=== PATIENT | female | born 1965 | race American Indian/Alaskan Native ===

== ENCOUNTER 2017-03-10 11:54 | Observation (INO) | payer SELFPAY ==
--- NOTE | 2017-03-10 13:49 | PDOC ---
History of Present Illness - General Chief Complaint: Cold Symptoms Stated Complaint: FEVER, CHILLS (PCP SENT) Time Seen by Provider: 03/10/17 13:45 History Source: Patient - History of Present Illness Initial Comments: 03/10/17 14:16 Patient is a 51 y.o. female with no PMH who presents with a 3 day h/o subjective fever, sore throat and nausea. Patient also notes a 1 month h/o non- productive cough. Of note patient recently returned from [place] on 03/06/17. ROS is positive for 1 monht h/o night sweats and 15-20 lb weight loss over the last month. Patient notes that a number of her family members were sick in [place] - vomiting, fevers, uncertain of productive cough Past History - Past Medical History Allergies/Adverse Reactions: Allergies Allergy/AdvReac Type Severity Reaction Status Date / Time No Known Allergies Allergy Verified 03/10/17 12:04 Home Medications: Ambulatory Orders NK [No Known Home Medication] 03/10/17 COPD: No - Surgical History Abdominal Surgery: Yes Cholecystectomy: Yes - Suicide/Smoking/Psychosocial Hx Smoking History: Never smoked Hx Alcohol Use: No Drug/Substance Use Hx: No Substance Use Type: None Review of Systems - Review of Systems Constitutional: No: Chills, Fever HEENTM: No: Blurred Vision, Double Vision Respiratory: No: Shortness of Breath Cardiac (ROS): No: Chest Pain ABD/GI: No: Constipated, Diarrhea, Nausea, Vomiting : No: Burning, Dysuria All Other Systems: Reviewed and Negative *Physical Exam - Vital Signs Last Vital Signs Temp Pulse Resp BP Pulse Ox 100.9 F H 123 H 20 156/6 100 03/10/17 12:00 03/10/17 12:00 03/10/17 12:00 03/10/17 12:00 03/10/17 12:00 - Physical Exam General Appearance: Yes: Nourished, Appropriately Dressed HEENT: positive: EOMI, OCTAVIO Neck: positive: Trachea midline, Supple. negative: Lymphadenopathy (R), Lymphadenopathy (L) Respiratory/Chest: positive: Lungs Clear. negative: Respiratory Distress, Accessory Muscle Use, Labored Respiration, Rapid RR Cardiovascular: positive: S1, S2 Extremity: positive: Normal Capillary Refill, Normal Inspection Integumentary: positive: Normal Color, Dry, Warm Neurologic: positive: Fully Oriented, Alert ED Treatment Course - LABORATORY CBC & Chemistry Diagram: 03/10/17 14:25 03/10/17 14:25 Medical Decision Making - Medical Decision Making 03/10/17 15:18 Patient is a 51 y.o. female who presents with a constellation of symptoms (cough , night sweats) + recent travel to [facility] clinical suspicion for TB. Other DDx includes viral URI vs strep pharyngitis. Of note, TB skin testing likely to be positive as patient born in [place], likely recieved BG. Will require DYAN. PLAN: 1. Isolation 2. CXR, CBC, CMP 03/10/17 15:22 CXR showed no acute cardiopulmonary process including no cavitary lesion. Temp 100.9 --> IV Tylenol. DYAN pending. Influenza and Strep Pharyngitis negative. Case d/w with Dr. Mo. Patient admitted for observation. Patient and patient 's family @ bedside counseled on plan of care and important of contact precautions. Will continue to monitor patient while in ED. *DC/Admit/Observation/Transfer Diagnosis at time of Disposition: Fever - Discharge Dispostion Admit: Yes - Referrals - Patient Instructions - Post Discharge Activity
[2017-03-10] MEDS ORDERED: ACETAMINOPHEN 1000 MG/100 ML VIAL (NON FORMULARY) IVPB ONE (14:16)
[2017-03-10] MEDS ORDERED: SODIUM CHLORIDE 1,000 ML IV STA (14:16)
[2017-03-10 14:36] LABS: BASO % 0.8 % (0-2.0); EOS % 0.1 % (0-4.5); HEMATOCRIT 40.7 % (32.4-45.2); HEMOGLOBIN 13.1 GM/dL (10.7-15.3); LYMPH % 11.8 % (8-40); MCHC 32.2 g/dl (32.0-36.0); MEAN CELL VOLUME 77.5 fl (80-96); MEAN PLT VOLUME 8.2 fl (7.5-11.1); NEUT % 81.3 % (42.8-82.8); PLATELET COUNT 174 K/MM3 (134-434); RBC 5.25 M/mm3 (3.60-5.2); WHITE BLOOD COUNT 10.1 K/mm3 (4.0-10.0)
[2017-03-10] MEDS ORDERED: ACETAMINOPHEN INJECTION 100 ML IVPB ONE (14:42)
[2017-03-10 15:00] LABS: ALBUMIN 3.6 g/dl (3.4-5.0); ALK PHOS 70 U/L (45-117); ANION GAP 9 (8-16); BILIRUBIN,TOTAL 1.1 mg/dL (0.2-1.0); BLOOD UREA NITROGEN 7 mg/dL (7-18); CHLORIDE 102 mmol/L (98-107); CO2 25 mmol/L (21-32); CREATININE 0.8 mg/dL (0.55-1.02); GLUCOSE,RANDOM 99 mg/dL (74-106); POTASSIUM 3.6 mmol/L (3.5-5.1); SGOT/AST 13 U/L (15-37); SGPT/ALT 27 U/L (12-78); SODIUM 136 mmol/L (136-145); TOT PROT 7.5 g/dl (6.4-8.2)
--- NOTE | 2017-03-10 15:27 | PDOC ---
History of Present Illness - General Chief Complaint: Cold Symptoms Stated Complaint: FEVER, CHILLS (PCP SENT) Time Seen by Provider: 03/10/17 13:45 - History of Present Illness Initial Comments: 03/10/17 15:19 "The patient is a 51 year old female who presents to the emergency department with 3 days of cough, sore throat, and subjective fever since traveling from [facility] to [place] She states she has had the dry cough for about a month. She reports throat pain, but denies swelling. She also reports a 15 pound weight loss in the past month or so in addition to night sweats. She denies chest pain, shortness of breath, headache and dizziness. She denies nausea, vomit, diarrhea and constipation. She denies dysuria, frequency, urgency and . hematuria. Allergies: NKDA " Past History - Past Medical History Allergies/Adverse Reactions: Allergies Allergy/AdvReac Type Severity Reaction Status Date / Time No Known Allergies Allergy Verified 03/10/17 12:04 Home Medications: Ambulatory Orders NK [No Known Home Medication] 03/10/17 COPD: No - Surgical History Abdominal Surgery: Yes Cholecystectomy: Yes - Suicide/Smoking/Psychosocial Hx Smoking History: Never smoked Hx Alcohol Use: No Drug/Substance Use Hx: No Substance Use Type: None *Physical Exam - Vital Signs Last Vital Signs Temp Pulse Resp BP Pulse Ox 100.9 F H 123 H 20 156/6 100 03/10/17 12:00 03/10/17 12:00 03/10/17 12:00 03/10/17 12:00 03/10/17 12:00 ED Treatment Course - LABORATORY CBC & Chemistry Diagram: 03/10/17 14:25 03/10/17 14:25 - ADDITIONAL ORDERS Additional order review: Laboratory Results 03/10/17 14:25 Sodium 136 Potassium 3.6 Chloride 102 Carbon Dioxide 25 Anion Gap 9 BUN 7 Creatinine 0.8 Creat Clearance w eGFR > 60 Random Glucose 99 Calcium 9.0 Total Bilirubin 1.1 H AST 13 L ALT 27 Alkaline Phosphatase 70 Total Protein 7.5 Albumin 3.6 03/10/17 13:50 Group A Strep Rapid Antigen - Final Throat 03/10/17 14:02 Influenza Types A,B Antigen (LORRIE) - Final Nasopharyngeal Swab - Final 03/10/17 14:25 RBC 5.25 H MCV 77.5 L MCHC 32.2 RDW 14.0 MPV 8.2 Neutrophils % 81.3 Lymphocytes % 11.8 Monocytes % 6.0 Eosinophils % 0.1 Basophils % 0.8 - Medications Given in the ED: ED Medications Discontinued Medications Generic Name Dose Route Start Last Admin Trade Name Ashanti PRN Reason Stop Dose Admin Acetaminophen 1,000 mg 03/10/17 14:16 03/10/17 15:08 Ofirmev Injection - IVPB 03/10/17 14:17 1,000 mg ONCE ONE Administration Sodium Chloride 1,000 mls @ 1,000 mls/hr 03/10/17 14:16 03/10/17 15:08 Normal Saline - IV 03/10/17 15:15 1,000 mls/hr ASDIR STA Administration *DC/Admit/Observation/Transfer - Referrals Referrals: Gino Whitehead MD [Primary Care Provider] - - Patient Instructions - Post Discharge Activity
--- NOTE | 2017-03-10 15:30 | PDOC ---
Attending Attestation - Resident Resident Name: Gail Garcia - ED Attending Attestation I have performed the following: I have examined & evaluated the patient, The case was reviewed & discussed with the resident, I agree w/resident's findings & plan, Exceptions are as noted - HPI HPI: 03/10/17 15:28 "The patient is a 51 year old female, with a significant past medical history of , who presents to the emergency department with 3 days of cough, sore throat, and subjective fever since traveling from [place] to [place] She states she has had the dry cough for about a month. She reports throat pain, but denies swelling. She also reports a 15 pound weight loss in the past month or so, as well as night sweats. She denies chest pain, shortness of breath, headache and dizziness. She denies nausea, vomit, diarrhea and constipation. She denies dysuria, frequency, urgency and . hematuria. Allergies: NKDA " - Physicial Exam PE: 03/10/17 15:28 "GENERAL: Awake, alert, and fully oriented, in no acute distress HEAD: No signs of trauma EYES: PERRLA, EOMI, sclera anicteric, conjunctiva clear ENT: Auricles normal inspection, hearing grossly normal, nares patent, oropharynx clear without exudates. Moist mucosa NECK: Nontender, no stepoffs, Normal ROM, supple, no lymphadenopathy, JVD, or masses LUNGS: Breath sounds equal, clear to auscultation bilaterally. No wheezes, and no crackles HEART: Regular rate and rhythm, normal S1 and S2, no murmurs, rubs or gallops ABDOMEN: Soft, nontender, normoactive bowel sounds. No guarding, no rebound. No masses EXTREMITIES: Normal range of motion, no edema. No clubbing or cyanosis. No cords, erythema, or tenderness NEUROLOGICAL: Cranial nerves II through XII intact. 5/5 strength and sensation in all extremities, Normal speech, normal gait SKIN: Warm, Dry, normal turgor, no rashes or lesions noted. " - Medical Decision Making 03/10/17 15:28 51 F with fevers, cough, night sweats, and 15 lb weight loss x 1 month, with recent travel from [place]. Flu swab and rapid strep both negative. Likely viral URI, but consider TB r/o. - Labs - CXR - AFBs, DYAN - IVF, tylenol
[2017-03-10 15:40] LABS: URINE APPEARANCE CLEAR; URINE BILIRUBIN NEGATIVE (NEGATIVE); URINE BLOOD NEGATIVE (NEGATIVE); URINE COLOR STRAW; URINE GLUCOSE (UA) NEGATIVE (NEGATIVE); URINE KETONE NEGATIVE (NEGATIVE); URINE LEUK ESTERASE NEGATIVE (NEGATIVE); URINE NITRITE NEGATIVE (NEGATIVE); URINE PROTEIN NEGATIVE (NEGATIVE); URINE UROBILINOGEN NEGATIVE mg/dL (0.2-1.0)
[2017-03-10] MEDS ORDERED: ONDANSETRON 4 MG/2 ML VIAL IVPUSH PRN (17:38)
[2017-03-10] MEDS ORDERED: guaiFENesin/D-METHORPHAN HB 10 ML UNIT-DOSE CUPS PO PRN (17:39)
[2017-03-11] MEDS: ACETAMINOPHEN 325 MG TABLET (FP) PO PRN ×3 (00:03→17:20)
[2017-03-11] MEDS: D5-1/2NS+10 MEQ KCL - 10 MEQ/1,000 ML INFUS.BAG IV SCH ×2 (01:05→19:28)
[2017-03-11 06:01] VITALS: BMI 33.3
[2017-03-11 07:51] LABS: ALBUMIN 3.2 g/dl (3.4-5.0); ALK PHOS 58 U/L (45-117); ANION GAP 9 (8-16); BILIRUBIN,TOTAL 1.3 mg/dL (0.2-1.0); BLOOD UREA NITROGEN 7 mg/dL (7-18); CALCIUM 7.9 mg/dL (8.5-10.1); CHLORIDE 105 mmol/L (98-107); CO2 27 mmol/L (21-32); CREATININE 0.7 mg/dL (0.55-1.02); GLUCOSE,RANDOM 80 mg/dL (74-106); POTASSIUM 3.7 mmol/L (3.5-5.1); SGOT/AST 11 U/L (15-37); SGPT/ALT 21 U/L (12-78); SODIUM 141 mmol/L (136-145); TOT PROT 6.5 g/dl (6.4-8.2)
[2017-03-11 08:20] LABS: BASO % 0.3 % (0-2.0); EOS % 0.5 % (0-4.5); HEMATOCRIT 38.9 % (32.4-45.2); HEMOGLOBIN 12.7 GM/dL (10.7-15.3); LYMPH % 11.9 % (8-40); MCH 25.5 pg (25.7-33.7); MCHC 32.6 g/dl (32.0-36.0); MEAN CELL VOLUME 78.3 fl (80-96); MEAN PLT VOLUME 8.7 fl (7.5-11.1); MONO % 7.1 % (3.8-10.2); NEUT % 80.2 % (42.8-82.8); PLATELET COUNT 145 K/MM3 (134-434); RBC 4.97 M/mm3 (3.60-5.2); RDW 14.3 % (11.6-15.6); WHITE BLOOD COUNT 8.5 K/mm3 (4.0-10.0)
--- NOTE | 2017-03-11 10:33 | EKG ---
Test Reason : Blood Pressure : / mmHG Vent. Rate : 090 BPM Atrial Rate : 090 BPM P-R Int : 130 ms QRS Dur : 084 ms QT Int : 362 ms P-R-T Axes : 051 080 032 degrees QTc Int : 442 ms POOR DATA QUALITY, INTERPRETATION MAY BE ADVERSELY AFFECTED NORMAL SINUS RHYTHM NORMAL ECG NO PREVIOUS ECGS AVAILABLE Confirmed by ELISHA LANDAVERDE MD ([id number]) on 03/11/2017 10:32:53 AM Referred By: Confirmed By:ELISHA LANDAVERDE MD
--- NOTE | 2017-03-11 12:13 | HP ---
Admitting History and Physical - Primary Care Physician PCP: Gino Whitehead - Admission Chief Complaint: Fever cough with nause and vomiting History of Present Illness: 51 yrs old F no significant PMH recently travelled back from [facility] 14 Hrs flight present to Ed with 4-5 days H/O URTI symptoms with nausea, vomiting, nasal congestion, fever, chills and cough with body pain also c/o loosing 10- 15 Lbs over past few months,, no c/o night sweats, yesterday present to clinic , clinically dehydrated febrile, unable to tolerate PO so evaluated in the Ed and admitted for further evaluation, some how intially considering travelling to [facility] TB w/u was order by MD in the Ed but cancealed, patient is on airborn isolation., Feels improve on IV Hydration and symptomatic treatment, able to tolerate breakfast cultures are pending, Flu test -ve in the ED CBC Mildly elevated, CMP, CXR UA Normal.Also c/o Rt calf tenderness no swelling. 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 - Past Surgical History Past Surgical History: Yes: None - Smoking History Smoking history: Never smoked - Alcohol/Substance Use Hx Alcohol Use: No - Social History History of Recent Travel: Yes ([place] 2 wks ago) Home Medications - Allergies Allergies/Adverse Reactions: Allergies Allergy/AdvReac Type Severity Reaction Status Date / Time No Known Allergies Allergy Verified 03/10/17 12:04 - Home Medications Home Medications: Ambulatory Orders NK [No Known Home Medication] 03/10/17 Family Disease History - Family Disease History Family History: Unremarkable Review of Systems - Review of Systems Constitutional: reports: Chills, Fever, Lethargy, Loss of Appetite Eyes: denies: Blind Spots, Blurred Vision HENT: reports: Nasal Congestion. denies: Difficult Swallowing, Ear Discharge, Ear Pain Neck: denies: Decreased ROM, Lumps Cardiovascular: denies: Chest Pain, Edema, Palpitations Respiratory: reports: Cough. denies: Exercise Intolerance, Wheezing Gastrointestinal: reports: Abdominal Pain, Nausea, Vomiting Genitourinary: denies: Discharge, Dysuria Musculoskeletal: denies: Back Pain, Decreased ROM Integumentary: denies: Bruising, Change in Color Neurological: denies: Change in LOC, Change in Speech, Unsteady Gait Endocrine: denies: Excessive Sweating Hematology/Lymphatic: denies: Easily Bruised, Excessive Bleeding Pain Intensity: 4 Physical Examination Vital Signs: Vital Signs Temperature 100.5 F H 03/11/17 06:20 Pulse Rate 98 H 03/11/17 06:20 Respiratory Rate 20 03/11/17 06:20 Blood Pressure 128/70 03/11/17 06:20 O2 Sat by Pulse Oximetry (%) 99 03/10/17 23:50 Middle aged F not in acute distress, feels improved T ax 100.5 HEENT: MM dry no anemia, PERRLA EOMI NECK; No JVd , No Bruit CHEST: B/L cTA CVS: S1S2 R no m/g/r ABD: Obese, no distention, non tender Bs + EXT: No edema feet, Rt calf pain no swelling, Pulses + ARCHITECTURAL DESIGN LECTURER: AOx3 non focal Labs: CBC, BMP 03/11/17 06:00 03/11/17 06:00 Imaging - Results X-ray: Report Reviewed (No acute Infiltrayes) EKG: Report Reviewed (HR 90 NSR DC 130 QTc 442 axis; 80 Normal) Problem List - Problems (1) Fever Assessment/Plan: Present with fever and URTI symptoms, most likely viral Flu screening negative clinically improving, alythoug recent travelling to TB endemic area but clinical presentation unlikely of TB Chest X ray is normal, will consult Id for TB risk evaluation and further w/u if indicated., Tylenol PRN Cont IV Hydrtaion. F/U Pending cultures, off abx. Code(s): R50.9 - FEVER, UNSPECIFIED Qualifiers: Fever type: unspecified Qualified Code(s): R50.9 - Fever, unspecified (2) Nausea & vomiting Assessment/Plan: Improving now tolerating PO Cont famotidine and Zofran PRN taper IV Hydration Code(s): R11.2 - NAUSEA WITH VOMITING, UNSPECIFIED (3) Pain of right calf Assessment/Plan: No swelling considering recent prolonged air travel will do LE Doppler to r/O DVT cont DVT Prophylaxis. Code(s): M79.661 - PAIN IN RIGHT LOWER LEG
--- NOTE | 2017-03-11 14:12 | CON.ID ---
Consult Consult Specialty:: infectious diseases Referred by:: Reason for Consultation:: fever - History of Present Illness Chief Complaint: weakness,fever History of Present Illness: 51 yrs old F no significant PMH recently travelled back from [facility] on wednesday with 4-5 days H/O URTI symptoms with nausea, vomiting, nasal congestion, fever, chills and cough with body pain also patient mentions that she has lost weight, Her main complaint is sore throat because of which she is not able to eat or drink properly has been spiking fevers patient has her flu test negative. 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 - Past Surgical History Past Surgical History: Yes: None - Alcohol/Substance Use Hx Alcohol Use: No - Smoking History Smoking history: Never smoked - Social History History of Recent Travel: Yes ([place] 2 wks ago) Home Medications - Allergies Allergies/Adverse Reactions: Allergies Allergy/AdvReac Type Severity Reaction Status Date / Time No Known Allergies Allergy Verified 03/10/17 12:04 - Home Medications Home Medications: Ambulatory Orders NK [No Known Home Medication] 03/10/17 Review of Systems - Review of Systems Constitutional: reports: Chills, Fever HENT: reports: Other (sore throat pain while swallowing) Neck: reports: Tenderness Cardiovascular: reports: No Symptoms Respiratory: reports: No Symptoms Gastrointestinal: reports: No Symptoms Genitourinary: reports: No Symptoms Breasts: reports: No Symptoms Reported Musculoskeletal: reports: No Symptoms Integumentary: reports: No Symptoms Neurological: reports: No Symptoms Endocrine: reports: Increased Thirst Hematology/Lymphatic: reports: No Symptoms Physical Exam Vital Signs: Vital Signs Temperature 100.5 F H 03/11/17 06:20 Pulse Rate 98 H 03/11/17 06:20 Respiratory Rate 20 03/11/17 06:20 Blood Pressure 128/70 03/11/17 06:20 O2 Sat by Pulse Oximetry (%) 99 03/10/17 23:50 Constitutional: Yes: Well Nourished, Calm, Mild Distress HENT: Yes: Pharyngeal Erythema Neck: Yes: Supple, Lymphadenopathy (rt side submandibular) Cardiovascular: Yes: Regular Rate and Rhythm Respiratory: Yes: Regular, CTA Bilaterally Gastrointestinal: Yes: Normal Bowel Sounds, Soft Musculoskeletal: Yes: WNL Extremities: Yes: WNL Neurological: Yes: Alert, Oriented Psychiatric: Yes: Alert, Oriented Labs: CBC, BMP 03/11/17 06:00 03/11/17 06:00 Imaging - Results Chest X-ray: Report Reviewed, Image Reviewed Assessment/Plan Problem List - Problems (1) Fever Code(s): R50.9 - FEVER, UNSPECIFIED Qualifiers: Fever type: unspecified Qualified Code(s): R50.9 - Fever, unspecified (2) Nausea & vomiting Code(s): R11.2 - NAUSEA WITH VOMITING, UNSPECIFIED (3) Pain of right calf Code(s): M79.661 - PAIN IN RIGHT LOWER LEG 4 pharyngitis 5 dehydration i suspect that this is a viral illness,but very well could be strep throat i highly doubt that this is tb, plan will do a malaria smear ebenezer prado patient on augmentin hydration will do blood cx
[2017-03-11] MEDS: AMOX TR/POT CLAV 875MG/125MG TABLETS (FP) PO SCH (17:20)
[2017-03-12] MEDS: D5-1/2NS+10 MEQ KCL - 10 MEQ/1,000 ML INFUS.BAG IV SCH (06:16)
[2017-03-12] MEDS: AMOX TR/POT CLAV 875MG/125MG TABLETS (FP) PO SCH (08:14)
--- NOTE | 2017-03-12 09:17 | DS ---
Physical Examination Vital Signs: Vital Signs Temperature 98.8 F 03/12/17 06:00 Pulse Rate 87 03/12/17 06:00 Respiratory Rate 18 03/12/17 06:00 Blood Pressure 131/74 03/12/17 06:00 O2 Sat by Pulse Oximetry (%) 99 03/10/17 23:50 Labs: CBC, BMP 03/11/17 06:00 03/11/17 06:00 Discharge Summary Reason For Visit: FEVER Current Active Problems Fever (Acute) Nausea & vomiting (Acute) Pain of right calf (Acute) Condition: Improved - Instructions Referrals: Gino Whitehead MD [Primary Care Provider] - 1 Week - Home Medications Comprehensive Discharge Medication List: Ambulatory Orders Acetaminophen [Tylenol .Regular Strength -] 650 mg PO Q6H PRN tablet 03/12/17 Amox-Tr/K Cl [Augmentin 875-125mg Tablet -] 1 tab PO BID@0800,1730 tablet 03/12 Guaifenesin Dm [Robitussin Dm -] 10 ml PO Q8H PRN cup 03/12/17
[2017-03-12 10:23] VITALS: BP 121/76; PULSE 86; TEMP 98.2
== END 2017-03-12 11:45 | disposition home or self-care (01) ==
LOC: JER 11:54 → SUPCPDRO 11:54 → JERBED 16:39 → J8W 23:37
PROVIDERS: ADMIT Internal Medicine; ATTEND Internal Medicine
CPT/HCPCS: 36415; 71046-TC; 80053; 81003; 84703; 85025; 87040; 87070; 87116; 87206; 87207; 87430; 87556; 87804; 93005; 93010; 93970-TC; 99285-25; G0378